=== PATIENT | female | born 1950 | race Caucasian/White ===

== ENCOUNTER → 2024-05-23 | Outpatient (CLI) | payer MEDICARE ==
--- NOTE | 2024-05-23 09:37 | MR ---
EXAMINATION TYPE: MR pituitary wo/w con DATE OF EXAM: 05/23/2024 9:30 AM COMPARISON: 09/01/2014. CLINICAL INDICATION: Female, 74 years old with history of D35.2 BENIGN NEOPLASM OF PITUITARY GLAND; P HH, Benign neoplasm of pituitary gland, hx resection. TECHNIQUE: Multi planar, multi sequence imaging was performed through the brain. Specialized thin s equences were obtained through the pituitary gland/sella turcica. Pre-and post gadolinium sequences were obtained. IV Contrast: 9 mL Gadobutrol FINDINGS: Effacement of the basilar cisterns. The remainder the brain parenchyma visualized is grossly unremark able.. There remains a large slightly heterogenous pituitary mass measuring up to 36 x 32 x 40 mm. Br ain and displaces multiple structures including vascular structures and brain parenchyma. This is sig nificantly increased in size compared to prior in 2014 where it measured approximately 18 x 10 x 12 m m. IMPRESSION: Enlarging pituitary fossa mass with displacement of multiple structures surrounding pituitary fossa. [facility], , 05/23/2024 9:34 AM
== END | disposition home or self-care (01) ==
LOC: RADMRIMAIN 08:36
PROVIDERS: ATTEND Internal Medicine Geriatric Medicine
DX: D35.2 Benign neoplasm of pituitary gland (principal)
CPT/HCPCS: 70553; A9585

== ENCOUNTER → 2024-08-13 | Outpatient (CLI) | payer MEDICARE | END | disposition home or self-care (01) | LOC: LABWHC1 10:36 | PROVIDERS: ATTEND Neurological Surgery | DX: D35.2 Benign neoplasm of pituitary gland (principal); D35.3 Benign neoplasm of craniopharyngeal duct | CPT/HCPCS: 36415; 93005 ==